=== PATIENT | female | born 1990 | race Caucasian/White ===

== ENCOUNTER → 2016-12-24 | Day surgery (SDC) | payer OTHER | END | disposition home or self-care (01) | LOC: JRADIR 09:19 | PROVIDERS: ATTEND Internal Medicine | PROC: 0G9K3ZX Drainage of Thyroid Gland, Percutaneous Approach, Diagnostic (ICD-10-PCS; principal; 2016-12-24) | PROC: BG44ZZZ Ultrasonography of Thyroid Gland (ICD-10-PCS; 2016-12-24) | DX: E04.1 Nontoxic single thyroid nodule (principal); Z53.8 Procedure and treatment not carried out for other reasons | CPT/HCPCS: 76536-TC ==

== ENCOUNTER 2018-12-06 00:28 | Emergency (ER) | payer OTHER ==
[2018-12-06 00:42] VITALS: BMI 22.1
--- NOTE | 2018-12-06 01:28 | PDOC ---
History of Present Illness - General History Source: Patient Exam Limitations: No Limitations - History of Present Illness Initial Comments: 12/06/18 01:58 The patient is a 28 year old female with past medical history significant for thyroiditis s/p surgery (2 weeks ago) presents to the emergency department s/p a syncopal episode. The patient reports at 11:00 pm she had an episode of darkening of the vision and sweating followed by LOC. The patient reports he is unsure if she hit head. The patient reports she woke up on the ground, and reports facial pain. Denies chest pain and shortness of breath. The patient reports associated symptoms of a mild JOHNSON. Denies blurry vision or diplopia. <Tracy Silvestre - Last Filed: 12/06/18 01:58> <Josephine Sinha - Last Filed: 12/06/18 05:13> - General Chief Complaint: Syncope/Near Syncope Stated Complaint: BLOOD PRESSURE/FAINTING Time Seen by Provider: 12/06/18 01:27 Past History <Tracy Silvestre - Last Filed: 12/06/18 01:58> - Past Medical History Thyroid Disease: Yes (HYPER/DOMINIC) - Suicide/Smoking/Psychosocial Hx Smoking History: Unknown if ever smoked Hx Alcohol Use: No Drug/Substance Use Hx: No <Josephine Sinha - Last Filed: 12/06/18 05:13> - Past Medical History Allergies/Adverse Reactions: Allergies Allergy/AdvReac Type Severity Reaction Status Date / Time No Known Allergies Allergy Verified 05/02/14 20:54 Home Medications: Ambulatory Orders NK [No Known Home Medication] 12/06/18 Review of Systems - Review of Systems Able to Perform ROS?: Yes Comments:: 12/06/18 01:59 GENERAL/CONSTITUTIONAL: No fever or chills. No weakness. HEAD, EYES, EARS, NOSE AND THROAT: +facial pain. No change in vision. No ear pain or discharge. No sore throat. CARDIOVASCULAR: No chest pain or shortness of breath. RESPIRATORY: No cough, wheezing, or hemoptysis. GASTROINTESTINAL: No nausea, vomiting, diarrhea or constipation. GENITOURINARY: No dysuria, frequency, or change in urination. MUSCULOSKELETAL: No joint or muscle swelling or pain. No neck or back pain. SKIN: No rash NEUROLOGIC: +mild headache. No vertigo, loss of consciousness, or change in strength/sensation. ENDOCRINE: No increased thirst. No abnormal weight change. HEMATOLOGIC/LYMPHATIC: No anemia, easy bleeding, or history of blood clots. ALLERGIC/IMMUNOLOGIC: No hives or skin allergy. <Tracy Silvestre - Last Filed: 12/06/18 01:58> *Physical Exam - Vital Signs Last Vital Signs Temp Pulse Resp BP Pulse Ox 98.8 F 75 20 117/74 100 12/06/18 00:37 12/06/18 00:37 12/06/18 00:37 12/06/18 00:37 12/06/18 00:37 <Tracy Silvestre - Last Filed: 12/06/18 01:58> - Vital Signs Last Vital Signs Temp Pulse Resp BP Pulse Ox 98.8 F 75 20 117/74 100 12/06/18 00:37 12/06/18 00:37 12/06/18 00:37 12/06/18 00:37 12/06/18 00:37 <Josephine Sinha - Last Filed: 12/06/18 05:13> Moderate Sedation - Procedure Monitoring Vital Signs: Procedure Monitoring Vital Signs Temperature 98.8 F 12/06/18 00:37 Pulse Rate 75 12/06/18 00:37 Respiratory Rate 20 12/06/18 00:37 Blood Pressure 117/74 12/06/18 00:37 O2 Sat by Pulse Oximetry (%) 100 12/06/18 00:37 <Tracy Silvestre - Last Filed: 12/06/18 01:58> - Procedure Monitoring Vital Signs: Procedure Monitoring Vital Signs Temperature 98.8 F 12/06/18 00:37 Pulse Rate 75 12/06/18 00:37 Respiratory Rate 20 12/06/18 00:37 Blood Pressure 117/74 12/06/18 00:37 O2 Sat by Pulse Oximetry (%) 100 12/06/18 00:37 <Josephine Sinha - Last Filed: 12/06/18 05:13> ED Treatment Course - LABORATORY CBC & Chemistry Diagram: 12/06/18 02:03 12/06/18 02:08 <Josephine Sinha - Last Filed: 12/06/18 05:13> Medical Decision Making - Medical Decision Making 12/06/18 05:02 Patient Name: SAV PALM THIS IS A PRELIMINARY REPORT FROM [facility] DATE OF SERVICE: 2018-12-06 04:22:56 IMAGES: 160 EXAM: HEAD CT WITHOUT CONTRAST HISTORY: Syncope COMPARISON: None. FINDINGS: The ventricular system is midline and nondilated. The sulcal pattern is normal for the patient's age. There is no bleed, mass, extra-axial fluid collection or mass effect. No skull fracture or skull lesion is identified. The visualized paranasal sinuses and mastoid air cells are clear. IMPRESSION: Normal exam. 12/06/18 05:02 Pt has a CXR pending. 12/06/18 05:12 CXR normal. Exam normal. Pt will follow with PMD <Josephine Sinha - Last Filed: 12/06/18 05:13> *DC/Admit/Observation/Transfer - Attestations Scribe Attestion: 12/06/18 02:00 Documentation prepared by Tracy Silvestre, acting as emergency medical technician for Josephine Sinha MD. <Tracy Silvestre - Last Filed: 12/06/18 01:58> - Discharge Dispostion Decision to Admit order: No <Josephine Sinha - Last Filed: 12/06/18 05:13> Diagnosis at time of Disposition: Syncope, Syncope, near, Hypothyroid - Discharge Dispostion Disposition: HOME Condition at time of disposition: Stable - Referrals Referrals: Polly Medley MD [Primary Care Provider] - - Patient Instructions Printed Discharge Instructions: DI for Hypothyroidism - Post Discharge Activity
[2018-12-06 02:36] LABS: BASO % 0.4 % (0-2.0); EOS % 0.6 % (0-4.5); HEMATOCRIT 29.5 % (32.4-45.2); HEMOGLOBIN 9.8 GM/dL (10.7-15.3); LYMPH % 23.1 % (8-40); MCH 25.5 pg (25.7-33.7); MCHC 33.4 g/dl (32.0-36.0); MEAN CELL VOLUME 76.5 fl (80-96); MEAN PLT VOLUME 8.8 fl (7.5-11.1); NEUT % 66.9 % (42.8-82.8); PLATELET COUNT 232 K/MM3 (134-434); RBC 3.85 M/mm3 (3.60-5.2); WHITE BLOOD COUNT 6.6 K/mm3 (4.0-10.0)
[2018-12-06 03:02] LABS: ALBUMIN 3.6 g/dl (3.4-5.0); ALK PHOS 96 U/L (45-117); ANION GAP 8 MMOL/L (8-16); BILIRUBIN,TOTAL 0.2 mg/dL (0.2-1); BLOOD UREA NITROGEN 14 mg/dL (7-18); CALCIUM 8.5 mg/dL (8.5-10.1); CHLORIDE 105 mmol/L (98-107); CO2 24 mmol/L (21-32); CREATININE 0.6 mg/dL (0.55-1.3); GLUCOSE,RANDOM 100 mg/dL (74-106); POTASSIUM 3.9 mmol/L (3.5-5.1); SGOT/AST 11 U/L (15-37); SGPT/ALT 17 U/L (13-61); SODIUM 138 mmol/L (136-145); TOT PROT 7.5 g/dl (6.4-8.2)
[2018-12-06 05:26] VITALS: BP 110/78; PULSE 88; TEMP 98.4
--- NOTE | 2018-12-06 11:05 | EKG ---
Test Reason : Blood Pressure : / mmHG Vent. Rate : 070 BPM Atrial Rate : 070 BPM P-R Int : 132 ms QRS Dur : 090 ms QT Int : 412 ms P-R-T Axes : 061 083 057 degrees QTc Int : 444 ms NORMAL SINUS RHYTHM NORMAL ECG NO PREVIOUS ECGS AVAILABLE Confirmed by MD REBECCA, RAEGAN ([id number]) on 12/06/2018 11:04:57 AM Referred By: Confirmed By:RAEGAN FERNANDEZ MD
== END 2018-12-06 05:28 | disposition home or self-care (01) ==
LOC: JER 00:28
DX: R55 Syncope and collapse (principal); E03.9 Hypothyroidism, unspecified; Z98.890 Other specified postprocedural states
CPT/HCPCS: 36415; 70450-TC; 71046-TC-FY; 80053; 82550; 84443; 84480; 84484; 84703; 85025; 93005; 93010; 99282-25

== ENCOUNTER 2019-10-12 10:55 | Emergency (ER) | payer BC, OTHER ==
[2019-10-12] MEDS ORDERED: ACETAMINOPHEN 325 MG TABLET (FP) PO ONE (11:02)
[2019-10-12 11:03] VITALS: BP 111/71; PULSE 100; TEMP 102.6; BMI 23.0
--- NOTE | 2019-10-12 11:08 | PDOC ---
Rapid Medical Evaluation Chief Complaint: Cold Symptoms Time Seen by Provider: 10/12/19 11:01 Medical Evaluation: Allergies Allergy/AdvReac Type Severity Reaction Status Date / Time No Known Allergies Allergy Verified 05/02/14 20:54 10/12/19 11:01 Patient is 29F with no significant PMH here today with fever, cough, bodyaches. Vitals notable for fever, tachycardia. Oropharynx clear, non-toxic appearing, lungs clear, RRR Flu sent, tylenol given. Patient to fast track. Discharge Disposition - Diagnosis Fever - Discharge Dispostion Condition at time of disposition: Stable - Referrals - Patient Instructions - Post Discharge Activity
--- NOTE | 2019-10-12 12:12 | PDOC ---
History of Present Illness - General Chief Complaint: Cold Symptoms Stated Complaint: COUGH/COLD SYMPTOMS Time Seen by Provider: 10/12/19 11:59 - History of Present Illness Initial Comments: 10/12/19 12:10 29-year-old female with flulike symptoms x4 days no comorbidities she self medicated with 2 doses of amoxicillin 500 mg at night over the last 2 days Past History - Past Medical History Allergies/Adverse Reactions: Allergies Allergy/AdvReac Type Severity Reaction Status Date / Time No Known Allergies Allergy Verified 05/02/14 20:54 Home Medications: Ambulatory Orders Guaifenesin Dm [Mucinex Dm -] 1 tab PO BID #60 tab.er.12h 10/12/19 COPD: No Thyroid Disease: Yes (HYPER/DOMINIC) - Immunization History Immunization Up to Date: No - Psycho Social/Smoking Cessation Hx Smoking History: Never smoked Have you smoked in the past 12 months: No Information on smoking cessation initiated: No Hx Alcohol Use: No Drug/Substance Use Hx: No Review of Systems - Review of Systems Constitutional: Yes: Fever HEENTM: Yes: Nose Congestion Respiratory: Yes: Cough *Physical Exam - Vital Signs Last Vital Signs Temp Pulse Resp BP Pulse Ox 102.6 F H 100 H 18 111/71 100 10/12/19 10:59 10/12/19 10:59 10/12/19 10:59 10/12/19 10:59 10/12/19 10:59 - Physical Exam 10/12/19 12:10 GENERAL: The patient is awake, alert, and fully oriented, in no acute distress. HEAD: Normal with no signs of trauma. EYES: sclera anicteric, conjunctiva clear. ENT: Ears normal tympanic membranes normal oropharynx clear uvula midline NECK: Normal range of motion LUNGS: Breath sounds equal, clear to auscultation bilaterally. No wheezes, and no crackles. HEART: S1 and S2 without murmur, rub or gallop. ABDOMEN: Soft, nontender, normoactive bowel sounds. No guarding, no rebound. No masses. EXTREMITIES: Normal range of motion, no edema. No clubbing or cyanosis. No cords, erythema, or tenderness. NEUROLOGICAL: Cranial nerves II through XII grossly intact. Normal speech, normal gait. PSYCH: Normal mood, normal affect. SKIN: Warm, Dry, normal turgor, no rashes or lesions noted. ED Treatment Course - Medications Given in the ED: ED Medications Discontinued Medications Generic Name Dose Route Start Last Admin Trade Name Christain PRN Reason Stop Dose Admin Acetaminophen 650 mg 10/12/19 11:02 10/12/19 11:21 Tylenol - PO 10/12/19 11:03 650 mg ONCE ONE Administration Medical Decision Making - Medical Decision Making 10/12/19 12:11 Advised patient not to self medicate this is a viral syndrome most likely flu however she is out of the window for Tamiflu. Advised the use of Mucinex for cough Tylenol and Motrin as directed for fevers. Patient is in agreement Discharge - Discharge Information Problems reviewed: Yes Clinical Impression/Diagnosis: Fever, Viral URI with cough Condition: Stable Disposition: HOME - Admission No - Additional Discharge Information Prescriptions: Guaifenesin Dm [Mucinex Dm -] 1 tab PO BID #60 tab.er.12h - Follow up/Referral Referrals: Aristides Blanco MD [Staff Physician] - - Patient Discharge Instructions Patient Printed Discharge Instructions: DI for Viral Upper Respiratory Infection -- Adult Additional Instructions: Return to the emergency room for worsening symptoms. Tylenol and Motrin for fevers as directed. Mucinex for cough as directed. Follow-up with primary care physician in 1 to 2 days for further evaluation and treatment options. Follow-up without fail. - Post Discharge Activity
== END 2019-10-12 12:36 | disposition home or self-care (01) ==
LOC: JERFT 10:55
DX: J06.9 Acute upper respiratory infection, unspecified (principal); B97.89 Other viral agents as the cause of diseases classified elsewhere; E06.3 Autoimmune thyroiditis
CPT/HCPCS: 71046-TC-FY; 99281-25

== ENCOUNTER 2023-12-06 17:19 | Emergency (ER) | payer BC ==
[2023-12-06 17:30] VITALS: BP 107/67; PULSE 72; RESP 20; TEMP 97.6; BMI 24.0
[2023-12-06 18:44] LABS: BASO % 0.3 % (0-2.0); EOS % 1.4 % (0-4.5); HEMATOCRIT 29.5 % (32.4-45.2); HEMOGLOBIN 9.2 GM/dL (10.7-15.3); LYMPH % 21.6 % (8-40); MEAN CELL VOLUME 67.9 fl (80-96); MEAN PLT VOLUME 7.9 fl (7.5-11.1); MONO % 15.6 % (3.8-10.2); NEUT % 61.1 % (42.8-82.8); PLATELET COUNT 300 10^3/uL (134-434); RBC 4.35 M/mm3 (3.60-5.2); RDW 17.6 % (11.6-15.6); WHITE BLOOD COUNT 7.5 K/mm3 (4.0-10.0)
[2023-12-06] MEDS ORDERED: valACYclovir HCL 500 MG TABLET (FP) ONE (18:53)
[2023-12-06] MEDS ORDERED: ACETAMINOPHEN 500 MG TABLET (FP) ONE (18:54)
[2023-12-06] MEDS: valACYclovir HCL 500 MG TABLET (FP) PO ONE (18:56)
[2023-12-06] MEDS: ACETAMINOPHEN 500 MG TABLET (FP) PO ONE (18:56)
[2023-12-06 19:23] LABS: POTASSIUM 3.8 mmol/L (3.5-5.1)
[2023-12-06 19:24] LABS: ANISOCYTOSIS 1+; OVALOCYTE 1+
[2023-12-06 19:26] LABS: ALBUMIN 3.4 g/dl (3.4-5.0); BLOOD UREA NITROGEN 10.6 mg/dL (7-18); CALCIUM 8.5 mg/dL (8.5-10.1); PLATELET ESTIMATE ADEQUATE
[2023-12-06 19:29] LABS: CREATININE 0.7 mg/dL (0.55-1.3)
[2023-12-06 19:31] LABS: BILIRUBIN,TOTAL 0.3 mg/dL (0.2-1); TOT PROT 7.6 g/dl (6.4-8.2)
== END 2023-12-06 20:23 | disposition home or self-care (01) ==
LOC: JER 17:19
DX: K52.9 Noninfective gastroenteritis and colitis, unspecified (principal); B02.9 Zoster without complications; R10.9 Unspecified abdominal pain
CPT/HCPCS: 36415; 80053; 85025; 99283-25